=== PATIENT | female | born 1955 | race African-American/Black ===

== ENCOUNTER 2020-02-13 14:58 | Inpatient (IN) | payer MEDICARE ==
[~2020-02-13] VITALS: Ht 144.8 cm; Wt 69.9 kg
[2020-02-13 15:42] LABS: BASOPHILS % 0.3 % (0.0-1.0); EOSINOPHILS # (AUTO) 0.1 (0.0-0.4); EOSINOPHILS % 0.6 % (0.0-6.0); HEMATOCRIT 45.6 % (34.2-44.1); HEMOGLOBIN 15.5 g/dL (12.0-16.0); LYMPHOCYTES # (AUTO) 1.4 (1.0-3.2); LYMPHOCYTES % 15.9 % (18.0-39.1); MEAN CORPUSCULAR HEMOGLOBIN 30.5 pg (28-32); MEAN CORPUSCULAR VOLUME 89.6 fL (81-99); MONOCYTES # (AUTO) 0.7 (0.2-0.8); MONOCYTES % 7.5 % (4.4-11.3); NEUTROPHILS # (AUTO) 6.8 (2.1-6.9); NEUTROPHILS % 75.4 % (38.7-80.0); PLATELET COUNT 471 x10e3/uL (140-360); RED BLOOD COUNT 5.09 x10e6/uL (3.6-5.1); RED CELL DISTRIBUTION WIDTH 12.6 % (11.7-14.4)
[2020-02-13 15:54] LABS: ALANINE AMINOTRANSFERASE 19 IU/L (0-55); ALBUMIN 3.9 g/dL (3.5-5.0); ALBUMIN/GLOBULIN RATIO 1.1 (0.8-2.0); ALKALINE PHOSPHATASE 86 IU/L (40-150); ANION GAP 15.5 mmol/L (8-16); BLOOD UREA NITROGEN 16 mg/dL (7-26); BUN/CREATININE RATIO 25 (6-25); CALCIUM 9.8 mg/dL (8.4-10.2); CARBON DIOXIDE 28 mmol/L (22-29); CHLORIDE 99 mmol/L (98-107); CREATINE KINASE 72 IU/L (29-168); CREATININE, SERUM 0.65 mg/dL (0.57-1.11); EST GLOMERULAR FILTRATION RATE > 60 ML/MIN (60-); GLUCOSE 118 mg/dL (74-118); POTASSIUM 3.5 mmol/L (3.5-5.1); SODIUM 139 mmol/L (136-145)
[2020-02-13 15:57] LABS: STREPTOCOCCUS GRP A ANTIGEN NEGATIVE (NEGATIVE)
[2020-02-13] MEDS ORDERED: ENOXAPARIN SOD INJ 60 MG/0.6 ML SYR SC STA (16:09)
[2020-02-13 16:13] LABS: INFLUENZAE A&B ANTIGEN (RAPID) NEGATIVE (NEGATIVE)
--- NOTE | 2020-02-13 16:44 | Diagnostic Imaging Report ---
ADDENDUM #1 The above findings were discussed with Dr. Ngo on 02/13/2020 4:45PM, who responded indicating that the communication was understood. Signed by: Dionne Tolliver MD on 02/13/2020 5:02 PM ORIGINAL REPORT EXAMINATION: CHEST SINGLE (PORTABLE) INDICATION: Chest pain COMPARISON: None FINDINGS: LINES/TUBES:EKG leads overlie the chest. LUNGS:The right lung is moderately inflated. There is complete opacification of the left hemithorax. Given the associated rightward mediastinal shift, this is more likely due to a massive left pleural effusion than consolidation or atelectasis. PLEURA:Likely massive left pleural effusion. MEDIASTINUM:Heart size difficult to evaluate given complete opacification of the left hemithorax. There is mild rightward mediastinal shift. BONES/SOFT TISSUES:No acute osseous injury. Osseous lesion at the left proximal humerus with chondroid appearing matrix, most likely benign. ABDOMEN:No free air under the diaphragm. IMPRESSION: Complete left hemithorax opacification with associated rightward mediastinal shift, most likely due to a massive left pleural effusion. Osseous lesion at the left proximal humerus with chondroid matrix, most likely benign. Signed by: Dionne Tolliver MD on 02/13/2020 4:40 PM
[2020-02-13] MEDS ORDERED: ONDANSETRON HCL INJ 2MG/ML 2ML 2 MG/ML VIAL IV PRN (18:45)
[2020-02-13] MEDS ORDERED: MORPHINE SULFATE INJ 4 MG/ML INJ 1ML IV PRN (18:45)
--- OUTSIDE RECORDS SUMMARY | 2020-02-13 18:55 | XMS REPORT ---
[facility] Address Unknown Phone Unavailable Care Team Providers Care Artificial Foliage Arranger Name Role Phone CHLOE MEREDITH Unavailable Unavailable Problems This patient has no known problems. Allergies, Adverse Reactions, Alerts This patient has no known allergies or adverse reactions. Medications This patient has no known medications. Results Test Description Test Time Test Comments Text Results Atomic Results Result Comments CHEST SINGLE (PORTABLE) 2020-02-13 16:37:00 [place] [address] Patient Name: HOLLY SKINNER MR #: [id number] : 1955 Age/Sex: 64/F Req #: [id number] Adm Physician: Ordered by: CHLOE MEREDITH DO Report #: [id number] Location: ER Room/Bed: Procedure: [id number] DX/CHEST SINGLE (PORTABLE) Exam Date: 02/13/20 Exam Time: 1556 REPORT STATUS: Signed ADDENDUM #1 The above findings were discussed with Dr. Meredith on 02/13/2020 4:45PM, who responded indicating that the communication was understood. Signed by: Karolina Ritchie MD on 02/13/2020 5:02 PM ORIGINAL REPORT EXAMINATION: CHEST SINGLE (PORTABLE) INDICATION: Chest pain COMPARISON: None FINDINGS: LINES/TUBES:EKG leads overlie the chest. LUNGS:The right l ashish is moderately inflated. There is complete opacification of the left hemithorax. Given the associated rightward mediastinal shift, this is more likely due to a massive left pleural effusion than consolidation or atelectasis. PLEURA:Likely massive left pleural effusion. MEDIASTINUM:Heart size difficult to evaluate given complete opacification of the left hemithorax. There is mild rightward mediastinal shift. BONES/SOFT TISSUES:No acute osseous injury. Osseous lesion at the left proximal humerus with chondroid appearing matrix, most likely benign. ABDOMEN:No free air u nder the diaphragm. IMPRESSION: Complete left hemithorax opacification with associated rightward mediastinal shift, most likely due to a massive left pleural effusion. Osseous lesion at the left proximal humerus with chondroid matrix, most likely benign. Signed by: Karolina Ritchie MD on 02/13/2020 4:40 PM Dictated By: KAROLINA RITCHIE MD 1702 Transcribed By: KRIS on 02/13/20 1640 COPY TO: CHLOE MEREDITH DO
--- NOTE | 2020-02-13 20:26 | Diagnostic Imaging Report ---
EXAMINATION: CHEST SINGLE (PORTABLE) INDICATION: ^POST PROCEDURE ^[id number] ^2013 COMPARISON: Chest radiograph 02/13/2020 10:09 PM FINDINGS: AP view TUBES and LINES: None. LUNGS: Lungs are well inflated. Slight improvement in the left hemithorax opacification. Reticular opacities in the right lung may reflect edema. PLEURA: Slightly decreased large left pleural effusion. No pneumothorax. HEART AND MEDIASTINUM: The cardiac silhouette is obscured. BONES AND SOFT TISSUES: Chondroid lesion in the left humeral head. Soft tissues are unremarkable. UPPER ABDOMEN: No free air under the diaphragm. IMPRESSION: Interval left thoracentesis with a slightly decrease in size of the left large pleural effusion. No pneumothorax. Signed by: Dr. Tuyet Villalpando M.D. on 02/13/2020 8:23 PM
[2020-02-13 20:54] LABS: BODY FLUID APPEARANCE TURBID; BODY FLUID COLOR STRAW; BODY FLUID TYPE PLEURAL
[2020-02-13 21:07] LABS: WBC,BODY FLUID 258 cells/uL
[2020-02-13 21:08] LABS: RBC,BODY FLUID 743 cells/uL
[2020-02-13 21:20] VITALS: BP 126/79
--- NOTE | 2020-02-13 21:20 | NUR ---
PATIENT RECEIVED BY ER. QUIN3. VS STABLE. ORIENTED TO CALL LIGHT. BED LOCKED AND IN LOW POSITION. RESTING IN BED.
[2020-02-13 21:24] LABS: AMYLASE,BODY FLUID 374
[2020-02-13 21:32] VITALS: BP 126/79
[2020-02-13 21:35] VITALS: BP 126/79
[2020-02-13 22:01] LABS: LYMPHOCYTES,BODY FLUID 37 %; MONO/MACROPHG,BODY FLUID 18 %; NEUTROPHILS,BODY FLUID 7 %
[2020-02-14] VITALS (7 sets, daily range): BP systolic 110–125; BP diastolic 66–80
[2020-02-14] MEDS ORDERED: ASPIRIN81 MG PO (01:46)
[2020-02-14] MEDS ORDERED: CELEBREX100 MG PO (01:46)
[2020-02-14] MEDS ORDERED: LOSARTAN POTAS100 MG PO (01:46)
[2020-02-14] MEDS ORDERED: OMEPRAZOLE20 M1 PO (01:46)
[2020-02-14] MEDS ORDERED: VITAMIN E400 UNI1 PO (01:46)
[2020-02-14] MEDS ORDERED: CALCIUM PO (01:46)
[2020-02-14] MEDS ORDERED: MULTI-VITAMIN1 EACH (01:46)
[2020-02-14] MEDS ORDERED: IBANDRONATE SO150 MG PO (01:46)
[2020-02-14 06:04] LABS: BASOPHILS % 0.3 % (0.0-1.0); EOSINOPHILS # (AUTO) 0.1 (0.0-0.4); EOSINOPHILS % 1.1 % (0.0-6.0); HEMOGLOBIN 13.4 g/dL (12.0-16.0); LYMPHOCYTES # (AUTO) 2.1 (1.0-3.2); LYMPHOCYTES % 19.9 % (18.0-39.1); MEAN CORPUSCULAR HEMOGLOBIN 29.6 pg (28-32); MEAN CORPUSCULAR HGB CONC 32.7 g/dL (31-35); MEAN CORPUSCULAR VOLUME 90.5 fL (81-99); MONOCYTES # (AUTO) 0.9 (0.2-0.8); MONOCYTES % 8.3 % (4.4-11.3); NEUTROPHILS # (AUTO) 7.2 (2.1-6.9); NEUTROPHILS % 69.9 % (38.7-80.0); PLATELET COUNT 389 x10e3/uL (140-360); RED BLOOD COUNT 4.53 x10e6/uL (3.6-5.1); RED CELL DISTRIBUTION WIDTH 12.6 % (11.7-14.4)
[2020-02-14 06:14] LABS: ALANINE AMINOTRANSFERASE 15 IU/L (0-55); ALBUMIN 3.1 g/dL (3.5-5.0); ALKALINE PHOSPHATASE 68 IU/L (40-150); ANION GAP 12.7 mmol/L (8-16); BLOOD UREA NITROGEN 16 mg/dL (7-26); BUN/CREATININE RATIO 27 (6-25); CALCIUM 9.3 mg/dL (8.4-10.2); CARBON DIOXIDE 29 mmol/L (22-29); CHLORIDE 102 mmol/L (98-107); EST GLOMERULAR FILTRATION RATE > 60 ML/MIN (60-); GLUCOSE 100 mg/dL (74-118); POTASSIUM 3.7 mmol/L (3.5-5.1); SODIUM 140 mmol/L (136-145)
--- NOTE | 2020-02-14 07:21 | NUR ---
REPORT GIVEN TO ONCOMING NURSE. NO SIGNS OF IV INFILTRATION. BED LOCKED AND IN LOW POSITION. CALL LIGHT WITHIN REACH. RESTING IN BED.
[2020-02-14] MEDS ORDERED: POTASSIUM CHLORIDE 20 MEQ TAB CR PO STA (12:29)
[2020-02-14] MEDS ORDERED: ACETAMINOPHEN/CODEINE 300MG - 30MG TAB PO PRN (12:30)
[2020-02-14] MEDS ORDERED: FUROSEMIDE INJ 10 MG/ML 4 ML VIAL IV ONE (12:30)
[2020-02-14] MEDS ORDERED: ACETAMINOPHEN 325 MG TAB PO PRN (12:30)
[2020-02-14] MEDS ORDERED: HYDRALAZINE HCL 20 MG/ML VIAL IV PRN (12:30)
[2020-02-14] MEDS ORDERED: MELATONIN 5 MG TABLET PO PRN (12:30)
[2020-02-14] MEDS ORDERED: MORPHINE SULFATE 2 MG/ML SYR 1ML IV PRN (13:00)
[2020-02-14 14:32] LABS: AMYLASE 39 U/L (25-125); LIPASE 12 U/L (8-78)
[2020-02-14] MEDS ORDERED: MORPHINE SULFATE INJ 4 MG/ML INJ 1ML IV PRN (14:45)
--- NOTE | 2020-02-14 15:59 | Diagnostic Imaging Report ---
EXAM: CT Chest WITH intravenous contrast 02/14/2020 2:04 PM INDICATION: Pleural effusion COMPARISON: Chest radiograph of 02/13/2020 TECHNIQUE: Chest was scanned utilizing a multidetector helical scanner from the lung apex through the level of the adrenal glands after administration of IV contrast. Coronal and sagittal reformations were obtained. Routine protocol was performed. IV CONTRAST: 100mL Isovue 370 RADIATION DOSE: Total DLP: 506 mGy*cm. Dose modulation, iterative reconstruction, and/or weight based adjustment of the mA/kV was utilized to reduce the radiation dose to as low as reasonably achievable. COMPLICATIONS: None FINDINGS: LINES/ TUBES: None. LUNGS AND AIRWAYS: The central airways are patent. There is complete left upper lobe collapse. Heterogeneous appearance of the collapsed left lung apex could represent infarcted lung parenchyma versus focal malignancy. Smooth interlobular septal thickening and scattered areas of groundglass opacity consistent with interstitial and mild airspace edema. PLEURA: Large left pleural effusion. No significant loculated component. No pneumothorax. Trace right pleural effusion. HEART AND MEDIASTINUM: The thyroid gland is normal. No supraclavicular or axillary lymphadenopathy. Prominent mediastinal lymph nodes measure up to 1.8 x 1.6 cm (subcarinal). Left hilar lymphadenopathy to 1.5 cm. Right hilar lymphadenopathy to 1.7 cm. The heart is enlarged. Small pericardial effusion. Minimal aortic atherosclerotic calcifications. The ascending aorta is ectatic, measuring up to 4.1 cm. UPPER ABDOMEN: Large sliding hiatal hernia. No other acute findings. BONES: No acute osseous injury. Partially visualized mixed lytic and sclerotic lesion at the proximal left humerus demonstrates chondroid matrix formation and most likely represents a benign cartilaginous neoplasm. SOFT TISSUES: Unremarkable. IMPRESSION: Large left pleural effusion without significant loculated component. No pneumothorax. Trace right pleural effusion. Complete left upper lobe collapse. Associated tapering of the left upper lobe bronchus. Heterogeneous appearance of the collapsed left lung apex could represent infarcted lung parenchyma versus malignancy. Pulmonary interstitial and early airspace edema. Signed by: Dionne Tolliver MD on 02/14/2020 3:55 PM
--- NOTE | 2020-02-14 16:23 | Consultation ---
DATE OF CONSULTATION: CHIEF COMPLAINT: Dyspnea and left pleural effusion. HISTORY OF PRESENT ILLNESS: The patient is a 64-year-old woman. She reports no prior pulmonary history. She has never had COPD, pneumonia, lung infection or asthma. She denies any prior cardiac history. She has noticed a gradually worsening dyspnea over the past week. She also had some epigastric discomfort and some difficulty swallowing. She did not have any chest pain. She denied fever or cough. When she came to the hospital, she had a left pleural effusion on her chest x-ray. She underwent an ultrasound-guided thoracentesis with significant improvement in her symptoms. PAST SURGICAL HISTORY: 1. Status post leg surgery. 2. Status post tubal ligation. PAST MEDICAL HISTORY: 1. No prior cardiac problems. 2. No prior pulmonary disease. SOCIAL HISTORY: The patient has never been a smoker. She is not a drinker. She denies any travel. ALLERGIES: NO KNOWN DRUG ALLERGIES. FAMILY HISTORY: Noncontributory. REVIEW OF SYSTEMS: The patient has no fever. She has no headache. She is not complaining of neck pain or chest pain. She has no cough. She has some mild epigastric pain. She does not have any abdominal pain. She has no nausea or vomiting. She has no leg edema or swelling. PHYSICAL EXAMINATION: VITAL SIGNS: The patient is afebrile. Blood pressure is 110/73, saturation is 94%. Pulse is 93. HEENT: Shows no facial swelling or erythema. CARDIAC: Reveals regular rate and rhythm with normal S1, S2. LUNGS: Auscultation of lungs shows decreased breath sounds on the left side. There is no wheezing. ABDOMEN: Soft, nontender. There is no rebound or guarding. EXTREMITIES: No leg edema or calf tenderness. There is no cyanosis or clubbing. SKIN: No rashes. NEUROLOGICAL: No focal abnormalities. LABORATORY DATA: BUN to creatinine ratio is normal. The other electrolytes are within normal limits. Total protein is 6.1 and the albumin is 3.1. The white blood cell count is 10 and hemoglobin is 13.4. The platelet count is 389,000. RADIOGRAPHIC DATA: Chest x-ray shows a large left pleural effusion. The 2nd x-ray after thoracentesis shows decreased size of the left pleural effusion. IMPRESSION: Dyspnea and left pleural effusion of unclear etiology. PLAN: 1. CT scan of the chest with IV contrast. 2. Triglyceride, total protein, and cytology should be added to the pleural fluid analysis. 3. Echocardiogram. 4. TSH. 5. Check amylase and lipase in serum. 6. Further recommendations depending on test results. MD JESÚS Cesar/KVNG /[id number]
[2020-02-14 16:34] LABS: OTHER CELLS,BODY FLUID 38 %
[2020-02-14 17:24] LABS: INR 0.94; PROTHROMBIN TIME 13.1 seconds (11.9-14.5)
[2020-02-14] MEDS ORDERED: SODIUM CHLORIDE 0.9% 50ML 50 ML ONE (18:02)
[2020-02-14] MEDS ORDERED: IOPAMIDOL 370 MG/ML 200 ML INFUS..BTL INJ ONE (18:03)
[2020-02-14] MEDS ORDERED: ZOLPIDEM TARTRATE 5 MG TAB PO PRN (21:00)
[2020-02-15] VITALS (8 sets, daily range): BP systolic 103–128; BP diastolic 69–76
[2020-02-15] MEDS: PANTOPRAZOLE SOD 40 MG TABEC PO SCH ×2 (06:24→17:56)
[2020-02-15] MEDS: MULTIVITAMINS/MINERALS TAB PO SCH ×2 (09:00→17:56)
--- NOTE | 2020-02-15 09:00 | NUR ---
PT OFF UNIT FOR THORACENTESIS.
--- NOTE | 2020-02-15 09:38 | Diagnostic Imaging Report ---
Ultrasound guided thoracentesis History: Left pleural effusion Technique: Written informed consent was obtained after discussing risks, benefits, and alternatives of the procedure with the patient. Patient was brought to the ultrasound suite and placed on the table in upright position. Pre-procedural ultrasound demonstrates a moderate to large left pleural effusion. Suitable percutaneous access site was chosen in the posterior left chest. Overlying skin was prepared and draped in the usual sterile fashion. Planned needle tract was anesthetized with dilute Lidocaine for local anesthesia. Using sonographic guidance, an 5 [place] Yueh needle was advanced into the left pleural effusion. Manager Auto images saved in the patient's medical record. Needle was removed, and catheter was advanced. Subsequently, 1100 cc of live-colored fluid was evacuated. Drainage was stopped prior to completion due to symptomatic cough and chest discomfort. The catheter was removed. Hemostasis achieved at puncture site by direct compression. The patient tolerated the procedure well. There were no complications. Post procedure chest radiograph was ordered. Impression: Technically successful sonographic guided left thoracentesis with evacuation of 1100 cc of fluid. Signed by: Dr. Gustavo Morales MD on 02/15/2020 9:35 AM
--- NOTE | 2020-02-15 10:23 | Diagnostic Imaging Report ---
EXAM: CHEST SINGLE (NOT PORTABLE) DATE: 02/15/2020 9:27 AM INDICATION: Status post left-sided thoracentesis COMPARISON: 02/13/2020 FINDINGS: There has been near complete resolution of left-sided pleural fluid. There is no evidence for pneumothorax status post thoracentesis. There are increased interstitial opacities present bilaterally, right greater than left. There is no evidence for lobar consolidation. The cardiomediastinal silhouette is stable in appearance. Stable chondroid lesion again noted within the right humeral head. No acute osseous abnormality is identified. IMPRESSION: No evidence of pneumothorax status post left thoracentesis. Signed by: Dr. Gustavo Morales MD on 02/15/2020 10:20 AM
--- NOTE | 2020-02-15 11:25 | NUR ---
PT RETURNED TO UNIT FROM PROCEDURE, VIA W/C RESP EVEN AND UNLABORED NO /O PAIN AND NO SOB INDICATED. CALL LIGHT IN REACH.
[2020-02-15 12:46] LABS: BODY FLUID APPEARANCE CLOUDY; BODY FLUID COLOR RED; BODY FLUID TYPE PLEURAL
[2020-02-15 12:49] LABS: RBC,BODY FLUID 31845 cells/uL; WBC,BODY FLUID 935 cells/uL
[2020-02-15 12:55] LABS: EOSINOPHILS,BODY FLUID 1 %; LYMPHOCYTES,BODY FLUID 19 %; NEUTROPHILS,BODY FLUID 8 %; OTHER CELLS,BODY FLUID 39 %
--- NOTE | 2020-02-15 13:31 | Progress Note ---
DATE: SUBJECTIVE: The patient underwent thoracentesis today. 1100 mL of pleural fluid was removed. The patient reports less dyspnea. A CT scan from last night showed a large left pleural effusion as well as some left upper lobe collapse. PHYSICAL EXAMINATION: VITAL SIGNS: The patient is afebrile. The blood pressure is 113/73, saturation is 94% and the pulse is 84. HEENT: Shows no facial swelling or erythema. CARDIAC: Reveals regular rate and rhythm with normal S1 and S2. LUNGS: Auscultation of lungs shows decreased breath sounds on the left side. ABDOMEN: Soft, nontender. There is no rebound or guarding. EXTREMITIES: Show no leg edema or calf tenderness. IMPRESSION: 1. Dyspnea and large left pleural effusion. 2. Lobar collapse of the left upper lobe. PLAN: 1. Arrange for bronchoscopy to evaluate for possible endobronchial lesion in the left upper lobe tomorrow. 2. Await results including cytology from pleural fluid. 3. Discussed need for bronchoscopy and potential risks with the patient. Also discussed the possibility of a recurrent fluid accumulation in the left pleural space. I also explained that cytology results will take 5 business days to come back. 4. Case discussed with OR scheduling, nursing, Internal Medicine, thoracic surgery, and the patient. MD JESÚS Cesar/KVNG /[id number] MTDD
[2020-02-15 13:48] LABS: MONO/MACROPHG,BODY FLUID 33 %
--- NOTE | 2020-02-15 14:01 | Consultation ---
DATE OF CONSULTATION: 02/15/2020 REASON FOR CONSULT: Left pleural effusion; requested by Dr. Antonia Brownlee. Flat Optical Element Maker is Dr. Delores Govea. HISTORY: I saw and evaluated this patient on February 15, 2020. She is a 64-year-old woman with no prior pulmonary history, who presented with dyspnea and was found to have a large left pleural effusion. There is no history of smoking or COPD. She has noted gradually worsening dyspnea over the past 1-2 weeks. She came to the emergency room for evaluation and chest x-ray revealed the effusion. There is no history of fever or cough. She has not had hemoptysis. There is no history of chest pain. She has undergone an ultrasound-guided thoracentesis with improvement in the pleural effusion, but it still persists. PAST MEDICAL HISTORY: Unremarkable. MEDICATIONS AT HOME: None. PAST SURGICAL HISTORY: Positive for tubal ligation. SOCIAL HISTORY: Negative for smoking, alcohol, or IV drugs. ALLERGIES: NONE KNOWN. FAMILY HISTORY: Negative for TB or other pulmonary problems. REVIEW OF SYSTEMS: GENERAL: Negative for fatigue and malaise. Positive for dyspnea. HEENT: Negative for decreased vision or decreased hearing. CARDIAC: Negative for chest pain or palpitation. PULMONARY: Positive for shortness of breath. No wheezing. GI: No constipation or diarrhea. : Negative for hematuria or dysuria. ENDOCRINE: Negative for polyuria or polydipsia. VASCULAR: Negative for claudication. SKIN: Negative for rashes or itching. HEMATOLOGIC: Negative for clotting or bleeding. INFECTIOUS: Negative for fevers or chills. PSYCHIATRIC: Negative for depression or anxiety. PHYSICAL EXAMINATION: GENERAL: Well-developed, well-nourished lady appearing her stated age. VITAL SIGNS: Blood pressure , pulse 80 and regular, respirations 16 and nonlabored, temperature is 99.1. HEENT: Extraocular motion full. Pupils are equal and reactive to light and accommodation. NECK: Supple, nontender. No JVD. CARDIAC: Shows a regular rate and rhythm. Normal S1 and S2. No S3, S4, rub, or murmur. LUNGS: Markedly decreased breath sounds on the left. On the right, breath sounds are clear. ABDOMEN: Globoid, benign. Good bowel sounds. No hepatosplenomegaly. BACK: No CVA tenderness. No muscular spasm. EXTREMITIES: No cyanosis, clubbing, or edema. VASCULAR: Carotids 2+/2+ bilateral. No carotid bruits. Radials 2+/2+ bilaterally. Femorals 2+/2+ bilaterally. SKIN: No rashes or nonhealing ulcers. MUSCULOSKELETAL: Full range of motion at all joints. No joint swelling. NEUROLOGIC: Cranial nerves 2 through 12 intact. Sensation intact to light touch and pinprick bilaterally. Strength 5/5 in all extremities. LYMPHATIC: Negative for cervical, clavicular, femoral adenopathy. LABORATORIES AND IMAGING: Chest x-ray and CT scan are reviewed. There is a large left pleural effusion. On the right, the lung escobedo are largely clear. The mediastinal silhouette is of normal diameter after the thoracentesis. WBC 10.30, hemoglobin 13.4, hematocrit 41.0, platelet count 388,000. INR 0.94. Sodium 140, potassium 3.7, creatinine 0.6. LFTs are normal. IMPRESSION: Large left pleural effusion of unclear etiology. Thoracentesis has been completed. The left pleural effusion was not completely drained. Laboratory studies pending. We will follow with her other physicians. Thank you very much for asking me to see this nice lady. MD MORRIS Piedra/KVNG /[id number]
--- NOTE | 2020-02-15 19:23 | NUR ---
WALKING ROUNDS COMPLETE, REPORT GIVEN TO ONCOMING NURSE.
[2020-02-16] VITALS (10 sets, daily range): BP systolic 105–147; BP diastolic 57–78
[2020-02-16 05:22] LABS: BASOPHILS % 0.5 % (0.0-1.0); EOSINOPHILS # (AUTO) 0.2 (0.0-0.4); EOSINOPHILS % 2.8 % (0.0-6.0); HEMATOCRIT 42.3 % (34.2-44.1); HEMOGLOBIN 13.8 g/dL (12.0-16.0); LYMPHOCYTES # (AUTO) 1.9 (1.0-3.2); LYMPHOCYTES % 23.4 % (18.0-39.1); MEAN CORPUSCULAR HEMOGLOBIN 29.7 pg (28-32); MEAN CORPUSCULAR HGB CONC 32.6 g/dL (31-35); MEAN CORPUSCULAR VOLUME 91.2 fL (81-99); MONOCYTES # (AUTO) 0.8 (0.2-0.8); MONOCYTES % 10.3 % (4.4-11.3); NEUTROPHILS % 62.6 % (38.7-80.0); PLATELET COUNT 361 x10e3/uL (140-360); RED BLOOD COUNT 4.64 x10e6/uL (3.6-5.1); RED CELL DISTRIBUTION WIDTH 12.7 % (11.7-14.4)
[2020-02-16 05:44] LABS: ANION GAP 11.5 mmol/L (8-16); BLOOD UREA NITROGEN 17 mg/dL (7-26); BUN/CREATININE RATIO 27 (6-25); CALCIUM 8.6 mg/dL (8.4-10.2); CARBON DIOXIDE 30 mmol/L (22-29); CHLORIDE 102 mmol/L (98-107); CREATININE, SERUM 0.62 mg/dL (0.57-1.11); EST GLOMERULAR FILTRATION RATE > 60 ML/MIN (60-); GLUCOSE 104 mg/dL (74-118); POTASSIUM 3.5 mmol/L (3.5-5.1); SODIUM 140 mmol/L (136-145)
--- NOTE | 2020-02-16 07:00 | NUR ---
REPORT RECEIVED, WALKING ROUNDS PERFORMED, PT RESTING QUIETLY IN BED, CALL LIGHT WITHIN REACH
--- NOTE | 2020-02-16 09:23 | NUR ---
PT SCHEDULED FOR BRONCH TODAY, SPOKE WITH ANES ABOUT CONDITION, CONSENT PLACED ON CHART, MED REC AND PT IS NPO
--- NOTE | 2020-02-16 09:44 | NUR ---
HOME O2 EVAL COMPLETED, NOTIFIED IRINEO MIDDLETON OF RESULTS
--- NOTE | 2020-02-16 12:45 | NUR ---
PT WAS TAKEN DOWN FOR BRONCHOSCOPY
[2020-02-16] MEDS ORDERED: LIDOCAINE HCL 4% 50 ML BTL ONE (12:48)
--- NOTE | 2020-02-16 12:53 | NUR ---
PT WHEELED OFF UNIT VIA STRETCHER FOR BRONCHOSCOPY, NO CHANGE IN CONDITION
--- NOTE | 2020-02-16 14:30 | NUR ---
PT BACK FROM BRONCHOSCOPY, VS STABLE, CALL LIGHT WITH IN REACH, 2LNC 98%
[2020-02-16] MEDS: PANTOPRAZOLE SOD 40 MG TABEC PO SCH (17:04)
[2020-02-16] MEDS: MULTIVITAMINS/MINERALS TAB PO SCH (17:04)
[2020-02-16] MEDS ORDERED: DEXAMETHASONE SOD PHOS INJ 4 MG/ML VIAL ONE (17:25)
[2020-02-16] MEDS ORDERED: KETOROLAC TROMETHAMINE 30 MG/ML VIAL ONE (17:25)
[2020-02-16] MEDS ORDERED: SEVOFLURANE INHAL SOLN 250 ML PEN BTL ONE (17:25)
[2020-02-16] MEDS ORDERED: PROPOFOL IV EMULSION 10 MG/ML 20 ML VIAL ONE (17:25)
[2020-02-16] MEDS ORDERED: SUCCINYLCHOLINE CHLORIDE 20 MG/ML 10ML VIAL ONE (17:25)
[2020-02-16] MEDS ORDERED: LIDOCAINE HCL 2% LOCAL INJ 5 ML SDV VIAL INJ ONE (17:25)
[2020-02-16] MEDS ORDERED: EPHEDRINE SULFATE INJ 50 MG/ML VIAL ONE (17:25)
[2020-02-16] MEDS ORDERED: ROCURONIUM BROMIDE 10 MG/ML 5ML VIAL IV ONE (17:25)
[2020-02-16] MEDS ORDERED: ONDANSETRON HCL INJ 2MG/ML 2ML 2 MG/ML VIAL ONE (17:25)
[2020-02-16] MEDS ORDERED: EYE LUBRICANT OPTH OINT 3.5GM TUBE OP ONE (17:25)
[2020-02-16] MEDS ORDERED: FENTANYL CITRATE/PF 100MCG/2 ML INJ ONE (17:40)
[2020-02-16] MEDS ORDERED: MIDAZOLAM HCL 2 MG/2 ML VIAL ONE (17:40)
--- NOTE | 2020-02-16 19:26 | Operative Report ---
DATE OF PROCEDURE: 02/16/2020 SURGEON: Alfonso Brownlee MD PROCEDURE: Left upper lobe bronchoscopy with endobronchial biopsy. PREOPERATIVE DIAGNOSIS: Left upper lobe atelectasis. POSTOPERATIVE DIAGNOSIS: Left upper lobe atelectasis. CONSENT: Consent was obtained from the patient. ANESTHESIA: MAC sedation and endotracheal intubation were provided by the Anesthesia Service. PROCEDURE IN DETAIL: The patient was placed in supine position. The scope was introduced through the endotracheal tube. The tracheal mucosa was normal. The matt was normal. The right tracheobronchial tree was evaluated. The right upper lobe was normal to the subsegmental level. The bronchus intermedius and right middle lobe were normal to the subsegmental level. The right lower lobe was normal. There were no endobronchial lesions. The scope was repositioned into the left tracheobronchial tree. The left mainstem bronchus was normal. The left lower lobe was normal to the subsegmental level. There were no endobronchial lesions. The scope was placed into the left upper lobe. Left upper lobe matt was widened. A matt between the two subsegments of the left upper lobe had friable mucosa and was slightly widened. Endobronchial biopsies x4 were obtained. COMPLICATIONS: None. ESTIMATED BLOOD LOSS: None. Alfonso Brownlee MD [facility]/MODL /[id number]
--- NOTE | 2020-02-16 19:30 | NUR ---
received report from day nurse. patient is resting comfortably in the bed. bed is in the lowest position and call light is within reach. continues with nasal canula at 2l. denies pain or discomfort at this time. will continue to monitor patient.
[2020-02-17 04:00] VITALS: BP 119/77
[2020-02-17 06:07] LABS: BASOPHILS % 0.2 % (0.0-1.0); EOSINOPHILS # (AUTO) 0.1 (0.0-0.4); EOSINOPHILS % 1.2 % (0.0-6.0); HEMOGLOBIN 12.7 g/dL (12.0-16.0); LYMPHOCYTES # (AUTO) 2.2 (1.0-3.2); MEAN CORPUSCULAR HGB CONC 32.6 g/dL (31-35); MONOCYTES # (AUTO) 0.9 (0.2-0.8); MONOCYTES % 9.1 % (4.4-11.3); NEUTROPHILS # (AUTO) 6.4 (2.1-6.9); NEUTROPHILS % 66.1 % (38.7-80.0); PLATELET COUNT 358 x10e3/uL (140-360); RED BLOOD COUNT 4.24 x10e6/uL (3.6-5.1); RED CELL DISTRIBUTION WIDTH 12.6 % (11.7-14.4)
[2020-02-17 06:33] LABS: ANION GAP 11.7 mmol/L (8-16); BLOOD UREA NITROGEN 17 mg/dL (7-26); BUN/CREATININE RATIO 29 (6-25); CALCIUM 8.4 mg/dL (8.4-10.2); CARBON DIOXIDE 29 mmol/L (22-29); CHLORIDE 104 mmol/L (98-107); CREATININE, SERUM 0.58 mg/dL (0.57-1.11); EST GLOMERULAR FILTRATION RATE > 60 ML/MIN (60-); GLUCOSE 95 mg/dL (74-118); POTASSIUM 3.7 mmol/L (3.5-5.1); SODIUM 141 mmol/L (136-145)
--- NOTE | 2020-02-17 07:00 | NUR ---
WALKING ROUND PERFORMED, REPORT RECEIVED, PT RESTING QUIETLY IN BED, CALL LIGHT WITH IN REACH
--- NOTE | 2020-02-17 07:11 | NUR ---
REPORT GIVEN TO DAY NURSE. PATIENT IS RESTING COMFORTABLY IN THE BED. BED IS IN THE LOWEST POSITION AND CALL LIGHT IS WITHIN REACH.
[2020-02-17 08:31] VITALS: BP 123/72
[2020-02-17 08:42] VITALS: BP 123/72
--- NOTE | 2020-02-17 10:59 | NUR ---
DR BURNS HERE FOR ROUNDS, CHEST XRAY PENDING, POSSIBLE DISCHARGE TODAY
--- NOTE | 2020-02-17 11:18 | Progress Note ---
DATE: SUBJECTIVE: The patient has some cough, but dyspnea is overall improved. She is on 2 L of oxygen and saturating 98%. PHYSICAL EXAMINATION: VITAL SIGNS: The patient is afebrile. The blood pressure is 123/72 and the saturation is 98% on 2 L. HEENT: Shows no facial swelling or erythema. CARDIAC: Reveals regular rate and rhythm with normal S1 and S2. LUNGS: Auscultation of lungs shows decreased breath sounds at the left base. There is no wheezing. ABDOMEN: Soft and nontender. There is no rebound or guarding. EXTREMITIES: Show no leg edema or calf tenderness. There is no cyanosis or clubbing. SKIN: Shows no rashes. NEUROLOGICAL: Shows no focal abnormalities. LABORATORY DATA: Electrolytes, BUN, and creatinine all within normal limits. CBC is normal. IMPRESSION: 1. Recurrent large left pleural effusion. 2. Left upper lobe atelectasis. PLAN: 1. The patient is awaiting cytology results from pleural fluid. I spoke with the pathologist yesterday and she sent the cytology to [facility] for further stains. 2. The patient should follow up in the office in 5 days for repeat chest x-ray and discussion of her pathology results. MD JESÚS Cesar/KVNG /[id number]
--- NOTE | 2020-02-17 11:50 | NUR ---
IMM letter delivered and explained to pt. She verbalized understanding and states she's ready to go home. Copy of letter given to pt. Signed copy placed in chart.
--- NOTE | 2020-02-17 12:01 | Diagnostic Imaging Report ---
EXAMINATION: CHEST SINGLE (PORTABLE) INDICATION: ^F/U THORA/BRONCH, SOB ^[id number] ^1115 COMPARISON: 02/15/[address] chest of 02/14/2020 FINDINGS: AP view TUBES and LINES: None. LUNGS: Lungs are well inflated. Unchanged left upper lobe mass with layering large left pleural effusion. Mild bilateral interstitial edema. PLEURA: No pleural effusion or pneumothorax. HEART AND MEDIASTINUM: The cardiac silhouette appears mildly enlarged and is likely related to a large hiatal hernia as noted on recent CT chest. BONES AND SOFT TISSUES: Chondroid lesion in the left humeral head, unchanged. No acute osseous lesion. Soft tissues are unremarkable. UPPER ABDOMEN: No free air under the diaphragm. IMPRESSION: Left upper lobe mass with collapse of the left upper lobe and large left pleural effusion remains stable. Large hiatal hernia. Signed by: Dr. Tuyet Villalpando M.D. on 02/17/2020 11:58 AM
[2020-02-17 13:03] VITALS: BP 115/67
--- NOTE | 2020-02-17 13:26 | NUR ---
spoke with dr ochoa regarding chest xray results, no new orders
--- NOTE | 2020-02-17 14:28 | NUR ---
SPOKE WITH DR Naida BURNS, OKAYED TO DISCHARGE , STATES " I GAVE HER INSTRUCTIONS THIS MORNING"
--- NOTE | 2020-02-17 15:53 | NUR ---
pt was discharged from hospital, iv taken out tip intact, pt left via wheelchair and taken home by family member in private car
--- NOTE | 2020-02-20 06:38 | Discharge Summary ---
ADMISSION DIAGNOSES: Complete left hemithorax with right mediastinal shift secondary to massive left pleural effusion, hypertension, obesity with a BMI of 33.3. DISCHARGE DIAGNOSES: Complete left hemithorax with right mediastinal shift secondary to massive left pleural effusion, hypertension, obesity with a BMI of 33.3. HISTORY: Hypertension GERD, osteoporosis, osteoarthritis. SURGICAL HISTORY: Left leg surgery. FAMILY HISTORY: Noncontributory. SOCIAL HISTORY: Occasional alcohol use. HOSPITAL COURSE: A 64-year-old female admits with complaints of shortness of breath and dyspnea on exertion x1 week. It continued to worsen for the last few days, so she came to the ER. She denies cough, fever, sick contacts, and recent travel. On admission, chest x-ray showed complete left pneumothorax, opacification with associated rightward mediastinal shift, most likely due to massive pleural effusion. Osseous lesion of the left proximal humerus with chondroid matrix, likely benign. Echo showed an EF of 55%. In the ER, the patient had a thoracentesis with an unknown amount of fluid pulled. CT showed large left pleural effusion without significant loculated component. No pneumothorax. Trace right pleural effusion. Complete left upper lobe collapse, associated tapering of the left upper lobe bronchus. The patient then went for a thoracentesis with IR and had a little over 1 L pulled. Pulmonology was consulted, who then did a bronchoscopy. Bronchoscopy was within normal limits. The left upper lobe had friable mucosa and was slightly widened, so she had 4 biopsies taken. Body fluid culture was negative for 3 days. Fluid triglycerides were 41. Biopsies were sent and will be followed up in 1 to 2 weeks with Pulmonology. The patient was cleared for discharge with Pulmonology and will follow up for results. The patient understands discharge instructions and agrees to plan. Dictated by Crystal Olivier NP MD JACKY Amin/MODL /[id number]
--- NOTE | 2020-03-06 20:32 | Consultation ---
DATE OF CONSULTATION: 03/06/2020 REASON FOR CONSULT: Recurrent left pleural effusion; requested by Dr. Antonia Brownlee. Production Administrator is Dr. Delores Govea. HISTORY OF PRESENT ILLNESS: I saw and evaluated the patient on March 06, 2020. She is a 64-year-old lady with no prior pulmonary history before this month, who presented with dyspnea several weeks ago. She was found to have a large left pleural effusion. Ultrasound-guided thoracentesis relieved the effusion on her first admission. Bronchoscopy was performed and was within normal limits. She had a diagnosis of malignancy made. Now she presents with recurrent left pleural effusion. She had thoracentesis today, but it was incomplete. There is still a moderate to large amount of fluid in the left pleural space. Drainage with a PleurX catheter has been recommended. No fevers or chills. PAST MEDICAL HISTORY: Unremarkable. MEDICATIONS: At home, prior to these admissions: None. PAST SURGICAL HISTORY: Tubal ligation and thoracentesis as above. SOCIAL HISTORY: Negative for smoking, alcohol, or IV drugs. ALLERGIES: NONE KNOWN. FAMILY HISTORY: Negative for TB or other pulmonary problems. REVIEW OF SYSTEMS: GENERAL: Positive for fatigue and malaise. Positive for dyspnea. HEENT: Negative for decreased vision or decreased hearing. CARDIAC: Negative for chest pain or palpitations. PULMONARY: Positive for shortness of breath. No wheezing. GI: No constipation or diarrhea. : Negative for hematuria or dysuria. ENDOCRINE: Negative for polyuria or polydipsia. VASCULAR: Negative for claudication. SKIN: Negative for rashes or itching. HEMATOLOGIC: Negative for clotting or bleeding. INFECTIOUS: Negative for fevers or sweating. PSYCHIATRIC: Negative for depression or anxiety. PHYSICAL EXAMINATION: GENERAL: Well-developed, well-nourished lady, sitting up in bed. VITAL SIGNS: Blood pressure 130/70, pulse 80 and regular, respirations 16 and unlabored. NECK: Supple and nontender. No JVD. HEENT: Extraocular motion full. Pupils equal and reactive to light and accommodation. CARDIAC: Regular rate and rhythm. Normal S1 and S2. No S3, S4, rub, or murmur. LUNGS: Markedly decreased breath sounds on the left. On the right, breath sounds are clear without wheezing. ABDOMEN: Globoid benign. Good bowel sounds. No hepatosplenomegaly. BACK: No CVA tenderness. No muscular spasm. EXTREMITIES: No cyanosis, clubbing, or edema. VASCULAR: Carotids 2+/2+ bilaterally. No carotid bruits. Radials and femorals 2+/2+ bilaterally. SKIN: No rashes or nonhealing ulcers. MUSCULOSKELETAL: Full range of motion at all joints. No joint swelling. NEUROLOGIC: Cranial nerves 2 through 12 intact. Sensation intact to light touch and pinprick bilaterally. Strength 5/5 in all extremities. LYMPHATIC: Negative for cervical, clavicular, or femoral adenopathy. IMAGING: Chest x-ray and CT scan are reviewed. There is a moderate to large left pleural effusion after thoracentesis. On the right, the lung escobedo are clear. LABORATORY DATA: White count 9.6, hemoglobin 12.7, hematocrit 39.0, and platelet count 358,000. INR is 0.94 with PT 13.1. Sodium 141, potassium 3.7, BUN is 17, and creatinine 0.58. IMPRESSION: Persistent left pleural effusion. This is apparently a malignant effusion. I agree with the need for PleurX catheter. I described the operation to the patient. I told her that the risks of surgery include , bleeding, infection, heart attack, stroke, pneumonia, prolonged ICU stay, tracheostomy, ventilator assistance, recurrence of effusion, malfunction of the catheter, etc. She stated that she understood, no further question and wanted to proceed. Surgery will be scheduled. Thank you much for asking me to see this nice lady. MD MORRIS Piedra/RODRIL /[id number]
== END 2020-02-17 15:50 | disposition home or self-care (01) | DRG 181 ==
LOC: ER 14:58 → ERHOLD 18:43 → MED/SURG 21:37
PROVIDERS: ADMIT Internal Medicine; ATTEND Internal Medicine
PROC: 0W9B3ZX Drainage of Left Pleural Cavity, Percutaneous Approach, Diagnostic (ICD-10-PCS; principal; 2020-02-13)
PROC: 0BD28ZX Extraction of Carina, Via Natural or Artificial Opening Endoscopic, Diagnostic (ICD-10-PCS; 2020-02-16)
PROC: 0BDG8ZX Extraction of Left Upper Lung Lobe, Via Natural or Artificial Opening Endoscopic, Diagnostic (ICD-10-PCS; 2020-02-16)
DX: C34.12 Malignant neoplasm of upper lobe, left bronchus or lung (principal); J94.2 Hemothorax; J98.19 Other pulmonary collapse; J98.11 Atelectasis; I10 Essential (primary) hypertension; E66.9 Obesity, unspecified; K21.9 Gastro-esophageal reflux disease without esophagitis; M81.0 Age-related osteoporosis without current pathological fracture; M19.90 Unspecified osteoarthritis, unspecified site; Z72.89 Other problems related to lifestyle; Z68.33 Body mass index [BMI] 33.0-33.9, adult
CPT/HCPCS: 31622; 32555; 36415; 71045; 71260; 80048; 80053; 82040; 82150; 82550; 82553; 83518; 83615; 83690; 83735; 83880; 84157; 84443; 84478; 84484; 85025; 85379; 85610; 87070; 87205; 87400; 88112; 88305; 88342; 89051; 93005; 93306; 99284; J0330; J1100; J1885; J1940; J2001; J2250; J2405; J3010; Q9967

== ENCOUNTER 2020-03-05 14:58 | Inpatient (IN) | payer MEDICARE, OTHER ==
[~2020-03-05] VITALS: Ht 149.9 cm; Wt 70.8 kg
[~2020-03-05 14:58] MED LIST: ASPIRIN81 MG PO; CALCIUM PO; CELEBREX100 MG PO; IBANDRONATE SO150 MG PO; LOSARTAN POTAS100 MG PO; MULTI-VITAMIN1 EACH; OMEPRAZOLE20 M1 PO; VITAMIN E400 UNI1 PO
[2020-03-05 17:05] VITALS: BP 127/75
--- NOTE | 2020-03-05 17:35 | NUR ---
pt arrived to unit via w/c from ER, direct admit, Pt alert resp even and unlabored except upon exertion,pt able pt make needs known, pt oriented to room and call light, bed rails up x2.
[2020-03-05] MEDS: PANTOPRAZOLE SOD 40 MG TABEC PO SCH (17:45)
--- NOTE | 2020-03-05 17:45 | NUR ---
Dr. Brownlee here to do bedside procedure ,Thoracentesis. pt alert resp even and unlabored and made comfortable.
[2020-03-05] MEDS ORDERED: PROMETHAZINE 12.5MG/ NACL 0.9% 12.5 MG/50 ML BAG IV PRN (18:15)
[2020-03-05] MEDS ORDERED: ONDANSETRON HCL INJ 2MG/ML 2ML 2 MG/ML VIAL IV PRN (18:15)
--- NOTE | 2020-03-05 18:20 | NUR ---
Dr Brownlee removed body small amt of body fluid.
[2020-03-05] MEDS ORDERED: SODIUM CHLORIDE 0.9% 1000ML 1,000 ML ONE (18:37)
--- NOTE | 2020-03-05 18:45 | NUR ---
pt became nauseated, and sleepy, pt vital signs taken at this time b/p 83/53 P. 72 R 22 , pt able to answer questions when asked, Stat cxr was ordered, pt put in Trendelenburg, Dr. Brownlee notified orders given.
[2020-03-05] MEDS ORDERED: SODIUM CHLORIDE 0.45% 1,000 ML IV ONE (18:50)
[2020-03-05] MEDS ORDERED: METHYLPREDNISOLONE SOD SUCC 40 MG/ML VIAL 1ML IV SCH (18:50)
--- NOTE | 2020-03-05 18:50 | NUR ---
pt receiving 500 ml bolus at this time, labeling associate her to draw labs.
[2020-03-05 19:12] LABS: BASOPHILS % 0.5 % (0.0-1.0); EOSINOPHILS # (AUTO) 0.3 (0.0-0.4); EOSINOPHILS % 3.7 % (0.0-6.0); HEMATOCRIT 37.9 % (34.2-44.1); HEMOGLOBIN 12.4 g/dL (12.0-16.0); LYMPHOCYTES # (AUTO) 2.8 (1.0-3.2); LYMPHOCYTES % 31.6 % (18.0-39.1); MEAN CORPUSCULAR HEMOGLOBIN 29.8 pg (28-32); MEAN CORPUSCULAR HGB CONC 32.7 g/dL (31-35); MEAN CORPUSCULAR VOLUME 91.1 fL (81-99); MONOCYTES # (AUTO) 0.8 (0.2-0.8); MONOCYTES % 9.6 % (4.4-11.3); NEUTROPHILS # (AUTO) 4.7 (2.1-6.9); PLATELET COUNT 463 x10e3/uL (140-360); RED BLOOD COUNT 4.16 x10e6/uL (3.6-5.1); RED CELL DISTRIBUTION WIDTH 12.3 % (11.7-14.4)
--- NOTE | 2020-03-05 19:19 | NUR ---
pt alert resp even and unlabored at this time. no distress noted, pt sitting upright in bed, no SOB indicated at this time.
--- NOTE | 2020-03-05 19:21 | Diagnostic Imaging Report ---
EXAMINATION: CHEST SINGLE (PORTABLE) INDICATION: Post thoracentesis. COMPARISON: CT chest of 02/14/2020. Multiple prior chest x-ray most recent dated 02/17/2020. FINDINGS: AP view TUBES and LINES: There is a new right-sided port. LUNGS/PLEURA: Interval worsening of the left pleural effusion. The previously reported left lung mass is obscured. HEART AND MEDIASTINUM: The cardiac silhouette is obliterated by the large pleural effusion. BONES AND SOFT TISSUES: Chondroid lesion in the left humeral head, unchanged. No acute osseous lesion. Soft tissues are unremarkable. UPPER ABDOMEN: No free air under the diaphragm. IMPRESSION: Interval worsening of the left pleural effusion Signed by: Miguel Ángel Bennett MD on 03/05/2020 7:18 PM
[2020-03-05 19:33] LABS: ALANINE AMINOTRANSFERASE 12 IU/L (0-55); ALBUMIN 2.9 g/dL (3.5-5.0); ALBUMIN/GLOBULIN RATIO 0.8 (0.8-2.0); ALKALINE PHOSPHATASE 97 IU/L (40-150); ANION GAP 13.6 mmol/L (8-16); BLOOD UREA NITROGEN 14 mg/dL (7-26); BUN/CREATININE RATIO 24 (6-25); CALCIUM 9.7 mg/dL (8.4-10.2); CARBON DIOXIDE 28 mmol/L (22-29); CHLORIDE 103 mmol/L (98-107); CREATININE, SERUM 0.59 mg/dL (0.57-1.11); EST GLOMERULAR FILTRATION RATE > 60 ML/MIN (60-); GLUCOSE 111 mg/dL (74-118); POTASSIUM 3.6 mmol/L (3.5-5.1); SODIUM 141 mmol/L (136-145)
--- NOTE | 2020-03-05 19:35 | NUR ---
walking rounds complete, pt stable at shift change.
--- NOTE | 2020-03-05 19:48 | History and Physical ---
CHIEF COMPLAINT: Dyspnea and bronchogenic carcinoma. HISTORY OF PRESENT ILLNESS: The patient is a 64-year-old woman. She has a history of bronchogenic carcinoma involving the left upper lobe and a malignant left pleural effusion. Prior pleural fluid cytology and bronchial brushings have demonstrated bronchogenic carcinoma with adenocarcinoma. The patient saw Dr. Jalloh and had a port placed earlier this week. The patient came to the office complaining of worsening dyspnea. She had no fever or cough. She had decreased breath sounds at the left side and a prior x-ray that showed some recurrent left pleural effusion. PAST SURGICAL HISTORY: 1. Status post thoracentesis x2. 2. Status post bronchoscopy. SOCIAL HISTORY: The patient is not a smoker. She is not a drinker. FAMILY HISTORY: Family history is noncontributory. ALLERGIES: NO KNOWN DRUG ALLERGIES. REVIEW OF SYSTEMS: The patient is afebrile. There is no headache. She has no chest pain. She had a recent Port-A-Cath. She does not complain of any vomiting. She does have some nausea. She has no leg edema. PHYSICAL EXAMINATION: VITAL SIGNS: The patient is afebrile. The vital signs are stable. CARDIAC: Reveals regular rate and rhythm with a normal S1 and S2. LUNGS: Auscultation of lungs reveals decreased breath sounds on the left side. ABDOMEN: Soft and nontender. There is no rebound or guarding. EXTREMITIES: Shows no leg edema or calf tenderness. There is no cyanosis or clubbing. SKIN: Shows no rashes. NEUROLOGICAL: Shows no focal abnormalities. IMPRESSION: 1. Stage IV bronchogenic carcinoma. 2. Recurrent malignant pleural effusion. 3. Left upper lobe collapse. PLAN: 1. Thoracentesis. 2. Evaluation by CT Surgery for possible PleurX catheter or intervention. 3. Oncology consultation. 4. Solu-Medrol. 5. Oxygen. MD JESÚS Cesar/KVNG /[id number]
--- NOTE | 2020-03-05 19:58 | Operative Report ---
DATE OF PROCEDURE: SURGEON: Alfonso Brownlee MD PROCEDURE: Ultrasound-guided thoracentesis. PREOPERATIVE DIAGNOSIS: Bronchogenic carcinoma with malignant pleural effusion. POSTOPERATIVE DIAGNOSIS: Bronchogenic carcinoma with malignant pleural effusion. ANESTHESIA: 1% lidocaine for local anesthesia. CONSENT: Consent was obtained from the patient. PROCEDURE IN DETAIL: The left posterior thorax was prepped sterilely with chlorhexidine. An ultrasound machine was used to locate the left pleural space. Several 100 mL of pleural fluid were visualized. A 1% lidocaine was used to anesthetize the space. A 16-gauge catheter was then used to access the pleural space. A 200 mL of dark fluid were withdrawn. COMPLICATIONS: None. Alfonso Brownlee MD [facility]/MODL /[id number]
[2020-03-05 20:00] VITALS: BP 129/85
[2020-03-05 22:30] VITALS: BP 126/88
[2020-03-06] VITALS (8 sets, daily range): BP systolic 116–147; BP diastolic 68–86
--- NOTE | 2020-03-06 07:03 | NUR ---
BEDSIDE SHIFT REPORT RECEIVED FROM PM NURSE, PT IN STABLE CONDITION. WILL CONTINUE TO MONITOR.
[2020-03-06] MEDS ORDERED: PANTOPRAZOLE SOD 40 MG TABEC PO SCH (09:00)
[2020-03-06] MEDS ORDERED: IOPAMIDOL 370 MG/ML 200 ML INFUS..BTL INJ ONE (09:55)
[2020-03-06] MEDS ORDERED: SODIUM CHLORIDE 0.9% 50ML 50 ML ONE (09:55)
--- NOTE | 2020-03-06 10:22 | Diagnostic Imaging Report ---
EXAM: CT Chest WITH intravenous contrast 03/06/2020 9:42 AM INDICATION: Pleural effusion COMPARISON: Chest CT 02/14/2020 TECHNIQUE: Chest was scanned utilizing a multidetector helical scanner from the lung apex through the level of the adrenal glands after administration of IV contrast. Coronal and sagittal reformations were obtained. Routine protocol was performed. IV CONTRAST: 100mL Isovue 370 RADIATION DOSE: Total DLP: 504 mGy*cm. Dose modulation, iterative reconstruction, and/or weight based adjustment of the mA/kV was utilized to reduce the radiation dose to as low as reasonably achievable. COMPLICATIONS: None FINDINGS: LINES/ TUBES: Right chest port with catheter tip at the superior cavoatrial junction. LUNGS AND AIRWAYS: Complete left lung atelectasis. Again seen is heterogeneous appearance of the collapsed left lung apex could represent infarcted lung parenchyma versus focal malignancy. Smooth interlobular septal thickening of the right lung consistent with interstitial pulmonary edema. No focal right lung consolidation. PLEURA: Large left pleural effusion. No pneumothorax. HEART AND MEDIASTINUM: The thyroid gland is normal. No supraclavicular or axillary lymphadenopathy. Prominent mediastinal lymph nodes measure up to 1.8 x 1.6 cm (subcarinal). Left hilar lymphadenopathy to 1.5 cm. Right hilar lymphadenopathy to 1.7 cm. Mild cardiomegaly with a small pericardial effusion. Minimal aortic atherosclerotic calcifications. The ascending aorta is ectatic, measuring up to 4.1 cm. UPPER ABDOMEN: Large sliding hiatal hernia. No other acute findings. BONES: No acute osseous injury. Partially visualized mixed lytic and sclerotic lesion at the proximal left humerus demonstrates chondroid matrix formation and most likely represents a benign cartilaginous neoplasm. SOFT TISSUES: Unremarkable. IMPRESSION: Large left pleural effusion and complete left lung atelectasis. No pneumothorax. Redemonstration of tapering of the left upper lobe bronchus with heterogeneous appearance of the collapsed left upper lobe could represent infarcted lung parenchyma versus malignancy. Pulmonary interstitial edema and unchanged mild cardiomegaly. Signed by: Dionne Tolliver MD on 03/06/2020 10:18 AM
--- NOTE | 2020-03-06 11:19 | NUR ---
DR. CELINA BURNS CALLED, INFORMED HIM OF CT CHEST FINDINGS, NO NEW ORDERS GIVEN.
--- NOTE | 2020-03-06 11:23 | NUR ---
DR. BURNS CALLED BACK, STATES AFTER TALKING TO DR. GREGORIO, HE WILL SCHEDULE THE PLEURX CATHETER PLACEMENT FOR TOMORROW. DR. BURNS WILL COME BY LATER THIS AFTERNOON TO SEE PT. PT IN STABLE CONDITION AT THIS TIME.
--- NOTE | 2020-03-06 12:31 | NUR ---
pt c/o SOB, tachypneic, breathing appears more labored. increased pt's oxygen level to 3L NC. Dr. Brownlee states we will give pt a few minutes on the increased oxygen rate and see if symptoms improve. no new orders given. will continue to monitor pt.
--- NOTE | 2020-03-06 15:11 | NUR ---
report from IR; pt had 1200 cc fluid removed; Respirations 30/min. pt was c/o pain to chest; seen by Dr. Alfonso Brownlee at bedside, states post-procedure CXR looks improved.
--- NOTE | 2020-03-06 16:04 | Diagnostic Imaging Report ---
EXAMINATION: CHEST SINGLE (NOT PORTABLE) INDICATION: Postprocedural COMPARISON: Chest CT of earlier the same day FINDINGS: LINES/TUBES:Right chest port terminates in the region of the superior cavoatrial junction. EKG leads overlie the chest. LUNGS:The right lung is well-inflated. Improved left lung aeration compared to the total collapse seen on the CT of earlier the same day, however left lung volume remains low. Hazy diffuse left lung opacities. PLEURA:Moderate residual left pleural effusion. No right pleural effusion. No pneumothorax. MEDIASTINUM:Cardiomediastinal silhouette is stably enlarged. BONES/SOFT TISSUES:No acute osseous injury. Unchanged chondroid lesion of the left proximal humerus. ABDOMEN:No free air under the diaphragm. IMPRESSION: No pneumothorax status post left pleural effusion. Interval improvement in left lung aeration although volumes remain low. Patchy left lung opacities compatible with atelectasis superimposed with left upper lobe lesion seen on CT. Signed by: Dionne Tolliver MD on 03/06/2020 4:01 PM
--- NOTE | 2020-03-06 16:05 | Diagnostic Imaging Report ---
PROCEDURE: Ultrasound-guided thoracentesis Procedural Personnel Attending physician(s): Dionne Tolliver MD Fellow physician(s): None Resident physician(s): None Advanced practice provider(s): None Pre-procedure diagnosis: Left malignant effusion Post-procedure diagnosis: Same Indication: Pleural effusion with compromised respiration Additional clinical history: None Complications: No immediate complications. IMPRESSION: Ultrasound-guided thoracentesis with drainage of 1200 mL of live serous fluid. Plan: Resume care by clinical team. PROCEDURE SUMMARY: - Limited thoracic ultrasound - Ultrasound-guided thoracentesis - Additional procedure(s): None PROCEDURE DETAILS: Pre-procedure Consent: Informed consent for the procedure including risks, benefits and alternatives was obtained and time-out was performed prior to the procedure. Preparation: The site was prepared and draped using maximal sterile barrier technique including cutaneous antisepsis. Anesthesia/sedation Level of anesthesia/sedation: No sedation Anesthesia/sedation administered by: Not applicable Total intra-service sedation time (minutes): NA Limited thoracic ultrasound Limited thoracic ultrasound was performed using a curved transducer. A safe window for thoracentesis was identified. Left hemithorax findings: Large pleural effusion Right hemithorax findings: Not investigated Thoracentesis Local anesthesia was administered. The pleural space was accessed under real-time ultrasound guidance and fluid return confirmed position. The fluid was drained. The catheter was removed, and a sterile bandage was applied. Catheter placed: 5F Evie Post-drainage hemithorax findings: Moderate pleural effusion Additional Details Additional description of procedure: None Equipment details: None Specimens removed: Pleural fluid Estimated blood loss (mL): Less than 10 Standardized report: [id number] Attestation Signer name: Dionne Tloliver MD I attest that I was present for the entire procedure. I reviewed the stored images and agree with the report as written. Signed by: Dionne Tolliver MD on 03/06/2020 4:02 PM
[2020-03-06] MEDS: MULTIVITAMINS/MINERALS TAB PO SCH (18:33)
[2020-03-06] MEDS: PANTOPRAZOLE SOD 40 MG TABEC PO SCH (18:33)
--- NOTE | 2020-03-06 19:23 | NUR ---
Patient received lying in bed. AAO x 4. Patient had no complaints of pain. Respirations even and unlabored on 2L NC. Safety measures in place. Patient instructed to call for assistance when needed. Call light within reach.
--- NOTE | 2020-03-06 22:52 | NUR ---
Patient informed of upcoming surgical procedure (Placement of Pleurx Catheter) scheduled for Wednesday (March 08). Patient verbalized understanding and signed the "Disclosure and Consent " form.
[2020-03-06] MEDS: GUAIFENESIN/CODEINE 10 ML CUP PO PRN (23:21)
[2020-03-06] MEDS: ZOLPIDEM TARTRATE 5 MG TAB PO PRN (23:21)
[2020-03-07] VITALS (9 sets, daily range): BP systolic 121–147; BP diastolic 65–86
--- NOTE | 2020-03-07 06:46 | NUR ---
Walking rounds done. Shift report given to oncoming nurse regarding patient's status.
--- NOTE | 2020-03-07 11:00 | NUR ---
Confirmed with OR glass technician/installer, patient is on schedule 03/08/2020 1300 for PleurX catheter placement.
--- NOTE | 2020-03-07 14:29 | Progress Note ---
DATE: SUBJECTIVE: The patient reports some improvement after thoracentesis yesterday. She is awaiting PleurX catheter tomorrow. She has no fever. PHYSICAL EXAMINATION: VITAL SIGNS: The patient is afebrile. The vital signs are stable. CARDIAC: Reveals regular rate and rhythm with normal S1 and S2. LUNGS: Auscultation of lungs reveals decreased breath sounds on the left side. ABDOMEN: Soft and nontender. There is no rebound or guarding. EXTREMITIES: Shows no leg edema or calf tenderness. There is no cyanosis or clubbing. SKIN: Shows no rashes. IMPRESSION: 1. Stage IV bronchogenic carcinoma. 2. Recurrent malignant pleural effusion. 3. Left upper lobe collapse. PLAN: 1. The patient is awaiting PleurX catheter tomorrow. 2. Continue oxygen. 3. Oncology is following the patient and will begin therapy once all the markers and receptor analysis is back. Alfonso Brownlee MD LM/KVNG /[id number]
[2020-03-07] MEDS: MULTIVITAMINS/MINERALS TAB PO SCH (17:00)
[2020-03-07] MEDS: PANTOPRAZOLE SOD 40 MG TABEC PO SCH (17:00)
--- NOTE | 2020-03-07 19:34 | NUR ---
Dr. Kary Castillo called with orders for surgical procedures scheduled for 03/08/20.
--- NOTE | 2020-03-07 22:53 | Diagnostic Imaging Report ---
EXAMINATION: CHEST SINGLE (PORTABLE) INDICATION: ^Pleural effusion ^[id number] ^2204 COMPARISON: Right chest port in unchanged position. FINDINGS: AP view TUBES and LINES: None. LUNGS/PLEURA: Unchanged large left pleural effusion with near complete opacification of the left hemithorax. Pulmonary edema is unchanged. HEART AND MEDIASTINUM: The cardiac silhouette is mostly obscured. BONES AND SOFT TISSUES: No acute osseous lesion. Soft tissues are unremarkable. UPPER ABDOMEN: No free air under the diaphragm. IMPRESSION: No interval change. Stable large left pleural effusion with near complete opacification of the left hemithorax. Unchanged right lung pulmonary edema. Signed by: Vickey Sanches MD on 03/07/2020 10:50 PM
[2020-03-08] VITALS (9 sets, daily range): BP systolic 118–142; BP diastolic 70–93
[2020-03-08] MEDS: GUAIFENESIN/CODEINE 10 ML CUP PO PRN ×2 (04:48→22:45)
[2020-03-08 06:13] LABS: BASOPHILS % 0.3 % (0.0-1.0); EOSINOPHILS # (AUTO) 0.6 (0.0-0.4); EOSINOPHILS % 5.2 % (0.0-6.0); HEMATOCRIT 39.8 % (34.2-44.1); HEMOGLOBIN 13.3 g/dL (12.0-16.0); LYMPHOCYTES % 8.9 % (18.0-39.1); MEAN CORPUSCULAR HEMOGLOBIN 30.2 pg (28-32); MEAN CORPUSCULAR HGB CONC 33.4 g/dL (31-35); MEAN CORPUSCULAR VOLUME 90.2 fL (81-99); MONOCYTES # (AUTO) 0.9 (0.2-0.8); MONOCYTES % 8.3 % (4.4-11.3); NEUTROPHILS # (AUTO) 8.4 (2.1-6.9); NEUTROPHILS % 76.9 % (38.7-80.0); PLATELET COUNT 419 x10e3/uL (140-360); RED BLOOD COUNT 4.41 x10e6/uL (3.6-5.1); RED CELL DISTRIBUTION WIDTH 12.5 % (11.7-14.4)
[2020-03-08 06:26] LABS: INR 1.03; PROTHROMBIN TIME 14.1 seconds (11.9-14.5)
[2020-03-08 06:34] LABS: CARBON DIOXIDE 31 mmol/L (22-29); CHLORIDE 102 mmol/L (98-107); CREATININE, SERUM 0.59 mg/dL (0.57-1.11); EST GLOMERULAR FILTRATION RATE > 60 ML/MIN (60-)
[2020-03-08 06:38] LABS: ANION GAP 11.6 mmol/L (8-16); BLOOD UREA NITROGEN 18 mg/dL (7-26); BUN/CREATININE RATIO 31 (6-25); CALCIUM 8.9 mg/dL (8.4-10.2); GLUCOSE 120 mg/dL (74-118); POTASSIUM 3.6 mmol/L (3.5-5.1); SODIUM 141 mmol/L (136-145)
--- NOTE | 2020-03-08 07:00 | NUR ---
Patient resting comfortably. No acute distress noted. Shift report given to oncoming nurse regarding patient's status.
--- NOTE | 2020-03-08 07:00 | NUR ---
RCD PT AT BED PT IS ALERT AND ORIENTED RESTING ON BED GETTING O2 2L BY NC PT NPO FOR PROCEDURE IV PATENT BY SALINE FLUSH BED LOW AND LOCKED CALL LIGHT IN REACH
[2020-03-08] MEDS ORDERED: BUPIVACAINE 0.5%/EPI 30 ML SDV INJ ONE (11:32)
--- NOTE | 2020-03-08 13:03 | Diagnostic Imaging Report ---
EXAMINATION: CHEST SINGLE (PORTABLE) INDICATION: Chest tube placement COMPARISON: Chest radiograph of 03/07/2020 FINDINGS: LINES/TUBES:Interval placement of left lateral Pleurx chest tube. Endotracheal tube terminates 3 7-m above the matt. Right chest port unchanged. LUNGS:The left lung volume is very low. Right lung is moderately inflated. There is perihilar fullness and indistinctness of the pulmonary vasculature. PLEURA:Large left pleural effusion. No pneumothorax. MEDIASTINUM:The cardiomediastinal silhouette appears unchanged in size and shape. BONES/SOFT TISSUES:No acute osseous injury. Unchanged left proximal humerus chondroid lesion. ABDOMEN:No free air under the diaphragm. IMPRESSION: Interval placement of left lateral Pleurx chest tube. No pneumothorax. Large left pleural effusion. Unchanged pulmonary edema. Signed by: Dionne Tolliver MD on 03/08/2020 1:00 PM
[2020-03-08] MEDS ORDERED: FENTANYL CITRATE/PF 100MCG/2 ML INJ ONE ×2 (13:40→15:04)
--- NOTE | 2020-03-08 14:00 | NUR ---
NOTIFIED DR BURNS REGARDING HOME O2 HE SAID NO HE WILL ARRANGE IN HIS OFFICE IF SHE NEED
--- NOTE | 2020-03-08 14:10 | NUR ---
PT BACK AFTER PROCEDURE PT IS ALERT AND ORIENTED NO SIGNS OF BLEEDING ON LT SIDE ,ONLY TUBE THERE IS NO CONNECTION WITH BAG VITALS CHECKED
[2020-03-08] MEDS ORDERED: MIDAZOLAM HCL 2 MG/2 ML VIAL ONE (15:04)
--- NOTE | 2020-03-08 15:09 | NUR ---
AC TO DR CELINA BURNS PT NEED CONNECTION BAG TO THE DRAINAGE TUBE , TALKED TO THE PACU NURSE ROSAURA RN SHE SAID DR PATRICK SAID KEEP IT LIKE THAT NO NEED TO DRAINAGE BAG NOTIFIED TO DR CELINA BURNS HE SAID ITS OK WATCH THE PT
[2020-03-08] MEDS ORDERED: ACETAMINOPHEN/CODEINE 300MG - 30MG TAB PO PRN (15:30)
[2020-03-08] MEDS ORDERED: MORPHINE SULFATE 2 MG/ML SYR 1ML IV PRN (15:30)
[2020-03-08] MEDS ORDERED: ENOXAPARIN SOD INJ 40 MG/0.4 ML SYR SC SCH (17:00)
[2020-03-08] MEDS: PANTOPRAZOLE SOD 40 MG TABEC PO SCH (17:00)
[2020-03-08] MEDS: DOCUSATE SODIUM 100 MG CAP PO SCH (17:00)
[2020-03-08] MEDS: MULTIVITAMINS/MINERALS TAB PO SCH (17:00)
--- NOTE | 2020-03-08 18:05 | Progress Note ---
DATE: SUBJECTIVE: The patient had a PleurX catheter placed today. She is still groggy from anesthesia, but her breathing has improved. PHYSICAL EXAMINATION: VITAL SIGNS: Blood pressure is 121/70, saturation is 97% on 2 L. HEENT: Shows no facial swelling or erythema. CARDIAC: Reveals regular rate and rhythm with normal S1, S2. LUNGS: Auscultation of lungs shows clear breath sounds bilaterally. There is no wheezing. ABDOMEN: Soft, nontender. There is no rebound or guarding. EXTREMITIES: Show no leg edema or calf tenderness. There is no cyanosis or clubbing. SKIN: Shows no rashes. IMPRESSION: 1. Bronchogenic carcinoma, stage IV. 2. Malignant pleural effusion. 3. Left upper lobe collapse. PLAN: 1. The patient will require training for the PleurX catheter at home. 2. Wean oxygen. 3. Plan for discharge after the patient is trained on usage of the PleurX catheter. MD JESÚS Cesar/KVNG /[id number]
--- NOTE | 2020-03-08 18:51 | NUR ---
PT RESTING ON BED BED SIDE REPORT GIVEN TO ONCOMING NURSE
--- NOTE | 2020-03-08 19:26 | NUR ---
Patient received sitting up in bed. AAO x 4. No complaints of pain. No signs of respiratory distress. No IV access. Dressing to left abdomen at the place of insertion of pleural drainage catheter CDI. Safety measures in place. Patient instructed to call for assistance when needed. Call light within reach.
[2020-03-08] MEDS ORDERED: LIDOCAINE HCL 2% LOCAL INJ 5 ML SDV VIAL INJ ONE (19:58)
[2020-03-08] MEDS ORDERED: SUCCINYLCHOLINE CHLORIDE 20 MG/ML 10ML VIAL ONE (19:58)
[2020-03-08] MEDS ORDERED: SEVOFLURANE INHAL SOLN 250 ML PEN BTL ONE (19:58)
[2020-03-08] MEDS ORDERED: CEFAZOLIN SOD 1 GM VIAL ONE (19:58)
[2020-03-08] MEDS ORDERED: PROPOFOL IV EMULSION 10 MG/ML 20 ML VIAL ONE (19:58)
[2020-03-08] MEDS ORDERED: ONDANSETRON HCL 4 MG ORAL DISINTEGRATING TAB PO PRN (20:00)
--- NOTE | 2020-03-08 20:53 | NUR ---
New IV inserted in left FA 22G. Patient tolerated well.
[2020-03-08] MEDS: ZOLPIDEM TARTRATE 5 MG TAB PO PRN (23:49)
[2020-03-09] VITALS: BP 123/68
[2020-03-09 04:00] VITALS: BP 130/74
[2020-03-09 06:08] LABS: BASOPHILS % 0.2 % (0.0-1.0); EOSINOPHILS # (AUTO) 0.4 (0.0-0.4); EOSINOPHILS % 3.7 % (0.0-6.0); HEMOGLOBIN 13.4 g/dL (12.0-16.0); LYMPHOCYTES # (AUTO) 1.3 (1.0-3.2); LYMPHOCYTES % 10.4 % (18.0-39.1); MEAN CORPUSCULAR HEMOGLOBIN 29.2 pg (28-32); MEAN CORPUSCULAR HGB CONC 31.9 g/dL (31-35); MEAN CORPUSCULAR VOLUME 91.5 fL (81-99); MONOCYTES # (AUTO) 1.2 (0.2-0.8); MONOCYTES % 9.7 % (4.4-11.3); NEUTROPHILS # (AUTO) 9.1 (2.1-6.9); NEUTROPHILS % 75.4 % (38.7-80.0); PLATELET COUNT 472 x10e3/uL (140-360); RED BLOOD COUNT 4.59 x10e6/uL (3.6-5.1); RED CELL DISTRIBUTION WIDTH 12.6 % (11.7-14.4)
[2020-03-09 06:24] LABS: ANION GAP 12.6 mmol/L (8-16); BLOOD UREA NITROGEN 11 mg/dL (7-26); BUN/CREATININE RATIO 19 (6-25); CALCIUM 9.2 mg/dL (8.4-10.2); CARBON DIOXIDE 30 mmol/L (22-29); CHLORIDE 101 mmol/L (98-107); CREATININE, SERUM 0.59 mg/dL (0.57-1.11); EST GLOMERULAR FILTRATION RATE > 60 ML/MIN (60-); GLUCOSE 117 mg/dL (74-118); POTASSIUM 3.6 mmol/L (3.5-5.1); SODIUM 140 mmol/L (136-145)
--- NOTE | 2020-03-09 07:05 | NUR ---
RCD PT AT BED PT IS ALERT AND ORIENTED RESTING ON BED IV PATENT BY SALINE FLUSH BED LOW AND LOCKED CALL LIGHT IN REACH
[2020-03-09] MEDS: DOCUSATE SODIUM 100 MG CAP PO SCH (08:32)
[2020-03-09 08:46] VITALS: BP 113/61
[2020-03-09 08:55] VITALS: BP 113/61
[2020-03-09 12:03] VITALS: BP 121/93
--- NOTE | 2020-03-09 13:40 | NUR ---
DR CELINA BURNS SAID ONE OF THE COMPANY IS COMING TO BRING THE CONNECTION EQUPMENT TO THE PLEURAL CATHETER HE SAID CALL THE COMPANY HE DONT KNOW THE PHONE NUMBER SO PAGED AND TALKED TESSANI IN DR GONZALEZ OFFICE
--- NOTE | 2020-03-09 13:55 | NUR ---
DR GREGORIO RETURNED THE CALL HE SAID THE WEEKEND NO BODY IS COMING WITH EQUPMENT ,PT CAN GO HOME IF OK WITH OTHER DOCTORS ,NOTIFIED DR CELINA BURNS HE SAID ASK DR SAAVEDRA IF OK WIH HIM DISCHARGE THE PT
--- NOTE | 2020-03-09 14:45 | NUR ---
DC THE O2 AND CHECKED AFTER 30 MTS O2 SATURATION 92% NOTIFIED DR GRANT PATRICK HE SAID OK TO DISCHARGE THE PT AND HE WILL ARRANGE HOME O2 IN HIS OFFICE IF SHE NEEDS
--- NOTE | 2020-03-09 15:34 | Discharge Summary ---
DISCHARGE DIAGNOSES: 1. Stage IV bronchogenic carcinoma. 2. Malignant pleural effusion. CONSULTING PHYSICIANS: 1. Dr. Jalloh of Hematology-Oncology. 2. Dr. Castillo of Thoracic Surgery. PROCEDURES: 1. Ultrasound-guided thoracentesis. 2. Placement of a PleurX catheter. DISCHARGE MEDICATIONS: 1. Aspirin 81 mg p.o. daily. 2. Losartan 100 mg p.o. daily. 3. Omeprazole 20 mg p.o. daily. HISTORY OF PRESENT ILLNESS: The patient is a 65-year-old woman. She has a history of bronchogenic carcinoma involving the left upper lobe with a malignant left pleural effusion. Prior cytology had no carcinoma from a pulmonary source. The patient came to the office complaining of worsening dyspnea. Chest x-ray showed pleural fluid. HOSPITAL COURSE: The patient was admitted. She required ultrasound-guided thoracentesis for temporary relief. She has also required oxygen. She was seen by Hematology in consultation. The patient subsequently required a PleurX catheter. She tolerated this procedure well and will be discharged home. DISPOSITION: The patient will be discharged home. She will follow up with Oncology as well as with Thoracic Surgery. MD JESÚS Cesar/KVNG /[id number]
--- NOTE | 2020-03-09 15:38 | NUR ---
PT WENT HOME IN SAFE CONDITION WITH HER DAUGHTER
--- NOTE | 2020-03-09 17:09 | Operative Report ---
DATE OF PROCEDURE: SURGEON: Cem Castillo MD PREOPERATIVE DIAGNOSIS: Malignant pleural effusion. POSTOPERATIVE DIAGNOSIS: Malignant pleural effusion. OPERATIVE PROCEDURE: Insertion of pleural drainage catheter (Pleur-X). ANESTHESIA: General endotracheal. DRY SANDER: Nursing. ANESTHESIA: General endotracheal. INDICATIONS: This is a lady with a large recurrent pleural effusion. Pleur-X catheter has been recommended. Prior to surgery, I described the operation to the patient. I told her that the risks of surgery would include , bleeding, infection, heart attack, stroke, pneumonia, mechanical ventilation, tracheostomy, prolonged ICU stay, prolonged mechanical ventilation, recurrence of the effusion, infection of the catheter, malfunction of the catheter, etc. The patient stated that she understood, no further questions, and wanted to proceed. FINDINGS: Uneventful placement of left Pleur-X catheter. 1.1 L of serosanguineous pleural fluid drained. DESCRIPTION OF PROCEDURE: The patient was taken to the operative room on March 08, 2020. General endotracheal anesthesia was smoothly induced. Time-out was performed appropriately after the patient had been prepped and draped. A subcutaneously tunneled PleurX catheter was inserted into the pleural space using Seldinger technique. On first accessing the fluid, there was a free-flowing serosanguineous fluid. Catheter insertion was uneventful. Drainage of 1.1 L of serosanguineous fluid was also uneventful. Wound was closed using absorbable suture. The catheter was affixed in place using an 0 silk suture. Local anesthesia was infiltrated. Sterile dressings were applied. Sponge, instrument, and needle counts were correct both prior to and after wound closure. Independent search of the operative field by operating surgeon and nurse revealed no retained instruments or sponges. The patient tolerated the procedure well, was taken to recovery room in stable condition. Cem Castillo MD GVL/MODL /[id number]
== END 2020-03-09 15:39 | disposition home or self-care (01) | DRG 167 ==
LOC: MED/SURG2 16:27 → OBSVTOIN 03-07 12:59
PROVIDERS: ADMIT Internal Medicine Critical Care Medicine; ATTEND Internal Medicine Critical Care Medicine
PROC: 0B9L4ZZ Drainage of Left Lung, Percutaneous Endoscopic Approach (ICD-10-PCS; principal; 2020-03-05)
PROC: 0B9L4ZZ Drainage of Left Lung, Percutaneous Endoscopic Approach (ICD-10-PCS; 2020-03-06)
PROC: 0W9B30Z Drainage of Left Pleural Cavity with Drainage Device, Percutaneous Approach (ICD-10-PCS; 2020-03-08)
DX: C34.90 Malignant neoplasm of unspecified part of unspecified bronchus or lung (principal); J98.19 Other pulmonary collapse; J91.0 Malignant pleural effusion; I10 Essential (primary) hypertension; D47.3 Essential (hemorrhagic) thrombocythemia
CPT/HCPCS: 32555; 36415; 71045; 71260; 74470; 80048; 80053; 85025; 85610; 86850; 86900; 87635; 88112; 88305; 88342; G0378; J0330; J0690; J1650; J2001; J2250; J2270; J2920; J3010; J7030; Q9967

== ENCOUNTER → 2020-03-19 | Outpatient (CLI) | payer MEDICARE ==
--- NOTE | 2020-03-19 10:52 | Diagnostic Imaging Report ---
CT of the chest, without contrast. History: Stage IV lung cancer. Comparison: CT chest with contrast from 03/06/2020. Technique: Multidetector CT scanning of the chest was performed from the level of the apices to the upper abdomen without contrast. Coronal and sagittal multiplanar reformations were obtained. RADIATION DOSE: Total DLP: 470.62 mGy*cm Dose modulation, iterative reconstruction, and/or weight based adjustment of the mA/kV was utilized to reduce the radiation dose to as low as reasonably achievable. FINDINGS: The visualized structures within the base of neck demonstrate no significant abnormalities. Right-sided IJ chest port again identified with catheter tip terminating at the superior cavoatrial junction. There is stable ectasia of the ascending thoracic aorta with maximal AP diameter of 4.1 cm. There is a small to moderate sized pericardial effusion present, mildly increased from the prior examination. Enlarged mediastinal and left hilar lymph nodes again, better evaluated on the prior contrast enhanced examination. A subcarinal lymph node measures up to 1.8 cm (axial image 43), unchanged from the prior examination. The trachea is patent. There is tapering and occlusion of the left upper lobe bronchus with complete atelectasis of the left upper lobe. There is heterogeneous appearance of the collapsed left upper lobe which may reflect underlying mass/infarct, as noted on the prior examination. There is a moderate left-sided pleural effusion present with majority of fluid dependently layering within the posterior left hemithorax. A tunneled pleural drainage catheter is identified coursing anteriorly. There are increased patchy consolidative opacities within the left lower lobe which may reflect atelectasis. Trace right pleural effusion noted. There is interlobular septal thickening of the right lung likely reflecting interstitial edema. There is no evidence for pneumothorax. Limited views of the upper abdomen demonstrate a large hiatal hernia. Partially visualized left proximal humeral lesion with suspected chondroid matrix formation again noted, unchanged from the prior examination. No acute osseous abnormalities identified. The extrathoracic soft tissues are unremarkable. IMPRESSION: 1. Persistent tapering/occlusion of the left upper lobe bronchus with complete collapse of the left upper lobe. Heterogeneous appearance of the collapsed upper lobe may reflect underlying neoplasm versus infarct. Findings are unchanged from the prior examination. 2. Moderate sized, dependently layering left-sided pleural effusion. Tunneled pleural drainage catheter identified coursing anteriorly. 3. Increased patchy opacities identified within the left lower lobe which may reflect atelectasis. A superimposed/developing infectious process should be difficult to exclude in this setting. 4. Trace right pleural effusion and findings suggestive of interstitial edema. 5. Small to moderate sized pericardial effusion, slightly increased from the prior examination. 6. Additional stable findings as above. Signed by: Dr. Gustavo Morales MD on 03/19/2020 10:49 AM
== END ==
LOC: CT 08:31
PROVIDERS: ATTEND Surgery
DX: C34.90 Malignant neoplasm of unspecified part of unspecified bronchus or lung (principal)
CPT/HCPCS: 71250

== ENCOUNTER → 2020-10-28 | Day surgery (SDC) | payer MEDICARE ==
[2020-10-25 15:50] LABS: BASOPHILS % 0.6 % (0.0-1.0); EOSINOPHILS # (AUTO) 0.2 (0.0-0.4); EOSINOPHILS % 3.8 % (0.0-6.0); HEMATOCRIT 37.7 % (34.2-44.1); HEMOGLOBIN 12.1 g/dL (12.0-16.0); LYMPHOCYTES # (AUTO) 2.2 (1.0-3.2); LYMPHOCYTES % 35.1 % (18.0-39.1); MEAN CORPUSCULAR HEMOGLOBIN 27.8 pg (28-32); MEAN CORPUSCULAR HGB CONC 32.1 g/dL (31-35); MEAN CORPUSCULAR VOLUME 86.7 fL (81-99); MONOCYTES # (AUTO) 0.6 (0.2-0.8); NEUTROPHILS # (AUTO) 3.2 (2.1-6.9); NEUTROPHILS % 50.2 % (38.7-80.0); PLATELET COUNT 348 x10e3/uL (140-360); RED BLOOD COUNT 4.35 x10e6/uL (3.6-5.1); RED CELL DISTRIBUTION WIDTH 14.6 % (11.7-14.4)
[2020-10-25 16:05] LABS: ANION GAP 14.9 mmol/L (8-16); BLOOD UREA NITROGEN 22 mg/dL (7-26); BUN/CREATININE RATIO 37 (6-25); CALCIUM 9.2 mg/dL (8.4-10.2); CARBON DIOXIDE 28 mmol/L (22-29); CHLORIDE 101 mmol/L (98-107); EST GLOMERULAR FILTRATION RATE > 60 ML/MIN (60-); GLUCOSE 110 mg/dL (74-118); POTASSIUM 3.9 mmol/L (3.5-5.1); SODIUM 140 mmol/L (136-145)
[~2020-10-28] MED LIST changes: +BUPIVACAINE 0.5%/EPI 30 ML SDV INJ ONE; +CEFAZOLIN SOD 1 GM/NS 50ML 50 ML IV ONE; +DEXAMETHASONE SOD PHOS INJ 4 MG/ML VIAL ONE; +FENTANYL CITRATE/PF 100MCG/2 ML INJ ONE; +HYDROCHLOROTHIA25 MG PO; +LIDOCAINE 2%/ EPINEPHRINE 20ML MDV ONE; +LIDOCAINE HCL 2% LOCAL INJ 5 ML SDV VIAL INJ ONE; +LYRICA50 MG PO; +NAPROXEN250 MG PO; +ONDANSETRON HCL INJ 2MG/ML 2ML 2 MG/ML VIAL ONE; +PROPOFOL IV EMULSION 10 MG/ML 20 ML VIAL ONE; +SEVOFLURANE INHAL SOLN 250 ML PEN BTL ONE; +SYNTHROID75 MCG PO; +VITAMIN B-121000 MCG IM
[2020-10-28 09:18] VITALS: BP 130/74
== END | disposition home or self-care (01) ==
LOC: OR 05:51
PROVIDERS: ATTEND Surgery
DX: Z46.89 Encounter for fitting and adjustment of other specified devices (principal); C34.90 Malignant neoplasm of unspecified part of unspecified bronchus or lung; J91.0 Malignant pleural effusion; Z01.810 Encounter for preprocedural cardiovascular examination; Z01.812 Encounter for preprocedural laboratory examination; Z01.818 Encounter for other preprocedural examination; Z20.828 Contact with and (suspected) exposure to other viral communicable diseases; I10 Essential (primary) hypertension
CPT/HCPCS: 32552; 36415; 71046; 80048; 85025; 88302; 93005; C1713; J0690; J1100; J2001; J2405; J2704; J3010; U0002; 88300